=== PATIENT | female | born 1995 | race Caucasian/White ===

== ENCOUNTER 2020-05-23 21:34 | Emergency (ER) | payer OTHER ==
[~2020-05-23] VITALS: Ht 160 cm; Wt 56.7 kg
--- NOTE | 2020-05-23 21:59 | NUR ---
PT AAOX4. AMBULATORY WITH STEADY GAIT. BIBSELF C/O HAVING TRIGGERS OF IMAGES. [facility] DENIES SI AND HI. PT PLACED IN GOWN, ON MONITOR, AND PULSE OX. VSS. NO ACUTE DISTRESS NOTED. AWAITING FOR MD FOR EVAL AND ORDERS.
--- NOTE | 2020-05-23 22:08 | NUR ---
URINE COLLECTED, SENT TO LAB.
--- NOTE | 2020-05-23 22:08 | NUR ---
COVID SWABBED, SENT TO LAB
--- NOTE | 2020-05-23 22:08 | NUR ---
CLINICAL PHYSICIAN ASSISTANT AT BEDSIDE FOR BLOOD WORK
[2020-05-23 22:18] LABS: BILIRUBIN,URINE Negative (NEGATIVE); BLOOD, URINE Negative Ery/uL (NEGATIVE); COLOR,URINE Yellow (YELLOW); LEUKOCYTE ESTERASE ,URINE Negative (NEGATIVE); NITRITE, URINE Negative (NEGATIVE); PROTEIN,URINE Negative (NEGATIVE); UGLUCOSE Negative (NEGATIVE); UROBILINOGEN,URINE 0.2 EU/dL (0.2)
[2020-05-23 22:19] LABS: BASOPHILS # (AUTO) 0.2 /CMM (0.0-0.2); BASOPHILS % (AUTO) 2.5 % (0.0-2.0); HEMATOCRIT 44 % (33-45); HEMOGLOBIN 14.8 g/dL (11.5-14.8); LYMPHOCYTES # (AUTO) 2.9 /CMM (0.8-4.8); LYMPHOCYTES % (AUTO) 38.5 % (20.0-44.0); MEAN CORPUSCULAR HGB CONC 34 g/dl (31.0-36.0); MEAN CORPUSCULAR VOLUME 91 fL (82-100); MONOCYTES # (AUTO) 0.4 /CMM (0.1-1.30); MONOCYTES % (AUTO) 4.7 % (2.0-12.0); NEUTROPHILS % (AUTO) 53.3 % (43.0-81.0); PLATELET COUNT (AUTO) 322 /CMM (150-450); RED BLOOD CELL COUNT(AUTO) 4.87 MIL/uL (4.0-5.2); WHITE BLOOD COUNT (AUTO) 7.5 K/uL (4.3-11.0)
[2020-05-23 22:27] LABS: CALCIUM, SERUM 9.2 mg/dL (8.5-10.1); CARBON DIOXIDE 28 mmol/L (21-32); CHLORIDE 103 mmol/L (98-107); CREATININE 0.6 mg/dL (0.6-1.3); GLUCOSE 100 mg/dL (74-106); POTASSIUM 4.3 mmol/L (3.5-5.1); SODIUM SERUM 137 mmol/L (136-145); UREA NITROGEN, BLOOD 14 mg/dL (7-18)
[2020-05-23 22:33] LABS: ACETAMINOPHEN < 2 ug/ml (10-30); ALANINE AMINOTRANSFERASE 18 U/L (12-78); ALBUMIN 3.7 g/dL (3.4-5.0); ALCOHOL, BLOOD < 3 mg/dL (0-0); ALKALINE PHOSPHATASE 79 U/L (46-116); ASPARTATE AMINOTRANSFERASE 10 U/L (15-37); BILIRUBIN,DIRECT 0.1 mg/dL (0.0-0.2); BILIRUBIN,TOTAL 0.3 mg/dL (0.2-1.0)
--- NOTE | 2020-05-23 22:51 | NUR ---
COVID NEGATIVE PER LAB
--- NOTE | 2020-05-23 23:09 | NUR ---
CLINICAL FAXED TO [facility] FOR VOLUNTARY ADMISSION.
--- NOTE | 2020-05-23 23:39 | NUR ---
Patient is resting comfortably in bed. Easily aroused. VSS.
--- NOTE | 2020-05-24 01:56 | NUR ---
PT ASLEEP, PROVIDED WITH MORE BLANKETS.
--- NOTE | 2020-05-24 03:08 | NUR ---
PT AMBULATED TO THE RESTROOM, VSS.
--- NOTE | 2020-05-24 05:49 | NUR ---
Patient is resting comfortably in bed with eyes closed. Easily aroused. VSS
--- NOTE | 2020-05-24 06:15 | NUR ---
EDGARDO JONESW PAGED FOR PSYCH EVAL.
--- NOTE | 2020-05-24 08:37 | NUR ---
[facility] MADE AWARE OF CONSULT.
--- NOTE | 2020-05-24 10:29 | NUR ---
PATIENT WILL BE REFERRED TO [facility] PER THI FOSS.
--- NOTE | 2020-05-24 14:18 | NUR ---
Accepted at [facility] by dr. Campoverde and Dr. Deleon.
--- NOTE | 2020-05-24 14:36 | NUR ---
CALLED TRANSPORT [facility] ETA 1515 PER ASHELY
--- NOTE | 2020-05-24 14:43 | NUR ---
Cristian from [facility] informed this SW that the patient has been pre-approved by [facility] insurance for inpatient stay at [place] under the care of Dr. Chatterjee and Dr. Deleon. SW notified PEDRO Velázquez.
--- NOTE | 2020-05-24 14:57 | NUR ---
Cristian from [facility] confirmed that the patient is going to [facility] in [place] as this location is closer to the patient's home.
--- NOTE | 2020-05-24 15:05 | NUR ---
RECEIVED REPORT FROM [facility] PATIENT IS GOING TO [facility] INSTE[facility].
--- NOTE | 2020-05-24 15:07 | NUR ---
REPORT GIVEN TO FLAKO VASQUEZ AT [facility].
[2020-05-24 15:12] VITALS: BP 127/70
--- NOTE | 2020-05-24 15:45 | NUR ---
REPORT GIVEN TO BUILDING CARPENTER. PATIENT TRANSFERRED TO [facility] IN STABLE CONDITION. BELONGINGS PROVIDED TO PATIENT.
--- NOTE | 2020-05-24 16:59 | NUR ---
SW met with the patient at bedside. Patient is a 24-year-old female. Patient is alert and oriented x4. Patient presented to [facility] ED originally due to triggers of images and false memory from hypnotherapy treatments. Patient was cleared by Outreach Nurse Daryn Robledo LCSW as patient denied suicidal and homicidal ideation. Patient confirmed demographics on face sheet to this SW. Patient informed this SW that patients primary plan was to undergo voluntary psychiatric treatment at [facility]. SW inquired about mental health diagnosis and previous hospitalizations, if any. Patient stated that she had undergone a recent hospitalization at [facility] this past February. Patient also reported that she has been diagnosed with Bipolar disorder but does not remember how long ago it was. Patient stated that she has been undergoing hypnotherapy and cannot get images out of her head. When this SW inquired about suicidal ideation patient denied current plan to harm herself and denied past suicidal ideation. Patient however did report to Daryn Robledo LCSW that patient has had one suicide attempt in July 2019. Patient denies alcohol, drug, and cigarette use. Patient remained cooperative during this assessment. Patient kept eye contact with this SW, patient was calm, and thought process was clear and linear. SW to refer patient to [facility] Intake (fax). SW informed Cristian at [facility] that patient had been referred earlier in this morning and Cristian informed this SW that he would review patient information to verify insurance. Plan: Once accepted to [facility], patient to be transferred to corresponding [facility] via ambulance
--- NOTE | 2020-05-24 17:00 | NUR ---
Cristian at [facility] informed this SW that patient insurance was not in network. Per Samuel recommendation, for [facility] ED intake to possible apply for presumptive Medical. SW to inform the patient that insurance did not cover at [facility] and that [facility] ED Intake could apply for presumptive Medical if the patient would like to move forward with that step. SW met with the patient at bedside and informed the patient regarding insurance coverage and SW and patient discussed possibility of applying to presumptive Medical. Patient did not want to apply for presumptive Medical and patient asked this SW if patient could use phone to call insurance for approved referrals. SW had Sayra sitter help patient get out of bed and this ADOLPH and Sayra guided the patient to the phone. SW returned to speak with the patient. Patient provided SW with a list of referrals from insurance company. On this list the patient received from insurance, patient had [facility] location. SW informed the patient that this SW would refer the patient to [facility]. SW spoke with Cristian at [facility] . Per Cristian, insurance did not clear and Cristian called insurance for clearance under [facility]. Cristian at [facility] called this with approval for the patient to be transferred to [address] [address] . Per Cristian, patient stay needed to be pre-approved for transfer. SW returned to meet with this patient to provided update information. Patient understood and was in agreement with plan.
--- NOTE | 2020-05-24 17:01 | NUR ---
ADOLPH received a call from wholesale account executiveElizabeth Holm asking this SW to confirm which [facility] patient has been accepted to. This SW informed wholesale account executiveElizabeth Holm that patient was accepted at [place]. wholesale account executiveElizabeth Holm informed this SW that Sara from [facility] informed Mihai that the patient was accepted at [facility] location. ADOLPH confirmed this information with Cristian at [facility]. Per Cristian, patient will be transferred to [facility] as it is closer to the patients home. This SW informed wholesale account executiveElizabeth Holm and ED RN Melania with correct accepting facility information [address] [place] [id number] . SW also informed patient, and patient in agreement with this plan. Plan: Patient to be transferred to corresponding [address] [address] via ambulance.
== END 2020-05-24 16:05 ==
LOC: ER 21:37
DX: F31.9 Bipolar disorder, unspecified (principal); R45.851 Suicidal ideations; Z20.828 Contact with and (suspected) exposure to other viral communicable diseases
CPT/HCPCS: 36415; 80048; 80076; 80299; 80307; 80320; 81001; 84703; 85025; 87426; 99285; C9803; 81000-TC; G0480